=== PATIENT | male | born 1995 | race Caucasian/White ===

== ENCOUNTER → 2018-10-01 | Emergency (ER) | payer OTHER | END | disposition left against medical advice (07) | LOC: ER 22:07 | DX: Z53.20 Procedure and treatment not carried out because of patient's decision for unspecified reasons (principal) ==

== ENCOUNTER 2025-02-11 23:06 | Emergency (ER) | payer OTHER ==
[~2025-02-11] VITALS: Ht 177.8 cm; Wt 64.9 kg
[2025-02-12] MEDS ORDERED: DICLOFENAC SODI50 MG PO (01:29)
== END 2025-02-12 02:19 ==
LOC: ER 23:06
DX: S13.4XXA Sprain of ligaments of cervical spine, initial encounter (principal); V49.88XA Car occupant (driver) (passenger) injured in other specified transport accidents, initial encounter; Y93.89 Activity, other specified; Y92.89 Other specified places as the place of occurrence of the external cause; Y99.8 Other external cause status; G89.11 Acute pain due to trauma; M54.2 Cervicalgia